=== PATIENT | male | born 1945 | race Two or more races ===

== ENCOUNTER 2020-08-30 07:09 | Emergency (ER) | payer OTHER ==
[~2020-08-30] VITALS: Ht 172.7 cm; Wt 85.7 kg
[~2020-08-30 07:09] MED LIST: ATACAND4 MG PO; FLONASE16 G1 NS; GLUCOTROL10 MG PO; ZYRTEC10 MG PO
[2020-08-30] MEDS ORDERED: NORFLEX100MG PO (10:23)
[2020-08-30] MEDS ORDERED: KETO10TA2 PO (10:23)
== END 2020-08-30 11:02 | disposition home or self-care (01) ==
LOC: ER 07:09
DX: M54.5 Low back pain (principal)

== ENCOUNTER 2020-08-31 08:20 | Outpatient (CLI) | payer OTHER ==
[~2020-08-31 08:20] MED LIST changes: +KETO10TA2 PO; +NORFLEX100MG PO
== END 2020-08-31 08:29 ==
LOC: RAD 08:20
DX: M25.561 Pain in right knee (principal); M25.562 Pain in left knee; M25.551 Pain in right hip; M25.552 Pain in left hip

== ENCOUNTER 2020-09-04 09:52 | Outpatient (CLI) | payer OTHER | END 2020-09-04 10:05 | disposition home or self-care (01) | LOC: MRI 09:52 | PROVIDERS: ATTEND Orthopaedic Surgery | DX: M67.461 Ganglion, right knee (principal); M25.561 Pain in right knee | CPT/HCPCS: 73721 ==

== ENCOUNTER → 2020-09-26 | Outpatient (CLI) | payer OTHER | END | disposition home or self-care (01) | LOC: RAD 07:51 | DX: M51.35 Other intervertebral disc degeneration, thoracolumbar region (principal) ==

== ENCOUNTER 2020-10-13 08:52 | Outpatient (CLI) | payer OTHER | END 2020-10-13 09:04 | disposition home or self-care (01) | LOC: MRI 08:52 | PROVIDERS: ATTEND Internal Medicine Cardiovascular Disease | DX: M51.37 Other intervertebral disc degeneration, lumbosacral region (principal) | CPT/HCPCS: 72148 ==

== ENCOUNTER 2021-11-06 09:52 | Emergency (ER) | payer OTHER ==
[~2021-11-06] VITALS: Ht 172.7 cm; Wt 88.5 kg
[2021-11-06] MEDS ORDERED: ATORVASTATIN CA40 MG PO (10:07)
[2021-11-06] MEDS ORDERED: CANDESARTAN CILE8 M1 PO (10:07)
[2021-11-06] MEDS ORDERED: METFORMIN HCL1000 M3 PO (10:08)
[2021-11-06] MEDS ORDERED: GLIPIZIDE10 MG PO (10:08)
[2021-11-06] MEDS ORDERED: BETAMETHASONE V15 GM TOP (13:14)
== END 2021-11-06 13:18 | disposition home or self-care (01) ==
LOC: ER 09:52
DX: R23.3 Spontaneous ecchymoses (principal); E11.9 Type 2 diabetes mellitus without complications; I10 Essential (primary) hypertension

== ENCOUNTER 2023-08-13 09:38 | Emergency (ER) | payer OTHER ==
[~2023-08-13] VITALS: Ht 172.7 cm; Wt 88.5 kg
[~2023-08-13 09:38] MED LIST changes: +ATORVASTATIN CA40 MG PO; +BETAMETHASONE V15 GM TOP; +CANDESARTAN CILE8 M1 PO; +GLIPIZIDE10 MG PO; +METFORMIN HCL1000 M3 PO
[2023-08-13] MEDS ORDERED: METFORMIN HCL1000 M3 PO (09:56)
[2023-08-13 11:03] LABS: HEMATOCRIT 44.6 % (39.0-48.0); HEMOGLOBIN 15.1 g/dL (13-16.00); MEAN CORPUSCULAR HEMOGLOBIN 30.4 pg (27.00-32.0); MEAN CORPUSCULAR HGB CONC 33.8 g/dl (32.0-36.0); PLATELET COUNT 203 K/uL (150-450); RED BLOOD COUNT 4.96 M/uL (4.00-6.00); RED CELL DISTRIBUTION WIDTH 13.3 % (11.5-14.5)
[2023-08-13 11:04] LABS: URINE APPEARANCE Clear; URINE BILIRRUBIN Negative (NEGATIVE); URINE BLOOD Moderate; URINE COLOR Yellow; URINE LEUKOCYTE Negative; URINE NITRATE Negative; URINE PROTEIN Negative (NEGATIVE); URINE UROBILINOGEN 0.2 E.U./dl
[2023-08-13 11:05] LABS: URINE RBC 20.2 uL (0.0-20.8)
[2023-08-13 11:07] LABS: URINE EPITHELIAL CELLS 0.4 uL (0.0-38.8); URINE GLUCOSE >=1000 MG/DL (NEGATIVE); URINE WBC 1.6 uL (0.0-23.2)
[2023-08-13 11:23] LABS: CALCIUM 9.2 mg/dL (8.5-10.1); CREATININE SERUM 1.17 mg/dL (0.70-1.30); GFR 60.45; POTASSIUM 4.27 mEq/L (3.5-5.1)
== END 2023-08-13 13:55 | disposition home or self-care (01) ==
LOC: ER 09:39
PROVIDERS: General Practice
DX: R07.89 Other chest pain (principal); Z20.822 Contact with and (suspected) exposure to COVID-19; I10 Essential (primary) hypertension; E11.9 Type 2 diabetes mellitus without complications; Z79.4 Long term (current) use of insulin

== ENCOUNTER 2025-04-26 07:09 | Outpatient (CLI) | payer OTHER | END 2025-04-26 07:16 | disposition home or self-care (01) | LOC: TOM 07:09 | PROVIDERS: ATTEND Internal Medicine Cardiovascular Disease | DX: R10.9 Unspecified abdominal pain (principal); K57.30 Diverticulosis of large intestine without perforation or abscess without bleeding; N40.0 Benign prostatic hyperplasia without lower urinary tract symptoms; N39.0 Urinary tract infection, site not specified | CPT/HCPCS: 74177; Q9965 ==

== ENCOUNTER 2025-06-21 07:00 | Day surgery (SDC) | payer OTHER ==
[2025-06-15 07:32] LABS: BASO % 0.6 % (0.1-1.2); EOS # 0.07 (0.04-0.54); EOS % 1.4 % (0.7-7.0); LYMPH # 1.46 (1.18-3.74); LYMPH % 29.7 % (19.3-53.1); MEAN PLATELET VOLUME 11.30 fl (9.4-12.4); MONO # 0.42 (0.24-0.82); MONO % 8.5 % (4.7-12.5); NEUT # 2.93 (1.56-6.13); NEUT % 59.6 % (34.0-71.1); RED CELL DISTRIBUTION WIDTH 12.3 % (11.6-14.4)
[2025-06-15 07:36] LABS: URINE APPEARANCE Clear; URINE BILIRRUBIN Negative (NEGATIVE); URINE BLOOD Moderate; URINE COLOR Yellow; URINE KETONE Negative (NEGATIVE); URINE LEUKOCYTE Negative; URINE NITRATE Negative; URINE PROTEIN Trace (NEGATIVE); URINE UROBILINOGEN 0.2 E.U./dl
[2025-06-15 07:40] LABS: URINE BACTERIA 7.1 uL (0.0-1933); URINE RBC 31.8 uL (0.0-20.8); URINE WBC 2.1 uL (0.0-23.2)
[2025-06-15 07:50] LABS: INR 1.06
[2025-06-15 08:02] LABS: ALT/SGPT 36.0 U/L (12-78); AST/SGOT 20.0 U/L (15-37); BILIRUBIN TOTAL 0.6 mg/dL (0.3-1.2); BUN CREA RATIO 16.0 (7.0-25.0); CREATININE SERUM 1.39 mg/dL (0.70-1.30); GFR 49.29; GLOBULINA 3.2 G/DL (2.4-3.5); GLUCOSE FASTING 114.0 mg/dL (65-100); OSMOLALITY SERUM 291.0 MOSM/KG (275-295)
[2025-06-15 08:43] LABS: URINE CAST 0.00 uL (0.0-1.40); URINE EPITHELIAL CELLS 0.9 uL (0.0-38.8); URINE GLUCOSE >=1000 MG/DL (NEGATIVE)
[2025-06-15 09:01] VITALS: BP 128/72
[~2025-06-21] VITALS: Ht 172.7 cm; Wt 79.4 kg
[~2025-06-21 07:00] MED LIST changes: +ASA81 MG PO
[2025-06-21] MEDS ORDERED: CEFAZOLIN SODIUM 1,000 MG VIAL ONE ×2 (07:30→11:19)
[2025-06-21] MEDS ORDERED: CEFAZOLIN SODIUM 1,000 MG VIAL IV SCH (11:00)
== END 2025-06-21 17:10 | disposition home or self-care (01) ==
LOC: CIR.AMB 07:00
PROVIDERS: ATTEND Specialist
DX: K42.9 Umbilical hernia without obstruction or gangrene (principal)

== ENCOUNTER 2025-07-31 20:01 | Emergency (ER) | payer OTHER ==
[~2025-07-31] VITALS: Ht 172.7 cm; Wt 78.9 kg
[2025-07-31] MEDS ORDERED: NORVASC2.5 M1 PO (22:38)
[2025-07-31] MEDS ORDERED: AMLODIPINE BESYLATE 2.5 MG TABLET PO ONE (22:45)
== END 2025-08-01 01:41 | disposition home or self-care (01) ==
LOC: ER 20:02
DX: I10 Essential (primary) hypertension (principal); E11.9 Type 2 diabetes mellitus without complications